=== PATIENT | female | born 1930 | race Caucasian/White ===

== ENCOUNTER → 2018-03-05 09:52 | Outpatient (CLI) | payer OTHER ==
[2013-01-25 13:19] VITALS: BMI 23.4
[~2018-03-05 09:52] MED LIST: ESTRACE1 MG PO; KLOR-CON 1010 MEQ PO; LEXAPRO10 MG PO; LISINOPRIL10 MG PO; LOMOTIL TABLET1 TAB PO; NEURONTIN 300300 MG PO; OMNICEF300 MG PO; PLAVIX75 MG PO; PRAVASTATIN SOD10 MG PO; XANAX0.25 MG PO
== END | disposition home or self-care (01) ==
LOC: D.CT 09:52
DX: F03.90 Unspecified dementia, unspecified severity, without behavioral disturbance, psychotic disturbance, mood disturbance, and anxiety (principal)

== ENCOUNTER 2018-03-18 22:16 | Inpatient (IN) | payer MEDICARE ==
[~2018-03-18] VITALS: Ht 152.4 cm; Wt 49.0 kg
--- NOTE | ~2018-03-18 | CN ---
PATIENT NAME:LOU NUNES MEDICAL RECORD: [id number] : 34 LOCATION:D.[facility]14 ADMIT DATE: 03/19/18 ACCOUNT: [id number] CONSULTING PHYSICIAN: JOE BATISTA MD REFERRING PHYSICIAN: ARINA RAMIREZ MD DATE OF CONSULTATION: 03/20/2018 HISTORY OF PRESENT ILLNESS: An 88-year-old lady with a history of hypertension, hyperlipidemia. Admitted with pancreatitis and underwent ERCP. Actually feeling better at this point, no specific complaints. Was found to have elevated cardiac enzymes perioperatively. We are asked to see her concerning her cardiovascular status. PAST MEDICAL HISTORY: Includes; 1. History of hypertension. 2. Hyperlipidemia. MEDICATIONS: Include Estrace mg Thursday, Thursday, and Thursday. Neurontin 300 four times a day. Lexapro 10 Thursday, Thursday, and . Xanax 0.5 at bedtime p.r.n. Pravastatin 10 at bedtime. Lisinopril 10 every day. Plavix 75 every day. ALLERGIES: HYDROCODONE, BETADINE. SOCIAL HISTORY: . Nonsmoker and nondrinker. Easily takes care of her ADLs. Actually stays quite active. REVIEW OF SYSTEMS: The patient reports easy bruising but reports no swollen glands. The patient reports no fever, no night sweats, no significant weight gain, no significant weight loss. No significant exercise tolerance. The patient reports no dry eyes, no irritation, no vision change. Patient reports no difficulty hearing and no ear pain. Patient reports no frequent nose bleeds or nose and sinus problems. Patient reports on arm pain on exertion. No shortness of breath while lying down. No history of heart murmur. Patient reports no cough, no wheezing or coughing up blood. Patient reports no abdominal pain, no vomiting. Normal appetite. No diarrhea and not vomiting blood. No nausea and no constipation. Patient reports no incontinence. No difficulty urinating. No hematuria. No increased frequency. Patient reports no muscle aches. No weakness, no arthralgias, no back pain. No swelling of the extremities. Patient reports no abnormal mole, no jaundice, no rashes. Reports no loss of consciousness. No weakness and no numbness. No seizures, dizziness, or headaches. The patient reports no depression, no sleep disturbance, feeling safe in a relationship and no alcohol abuse. Patient reports on fatigue. Reports no runny nose or sinus pressure. No itching, no hives, and no frequent sneezing. PHYSICAL EXAMINATION: GENERAL: Pleasant female, in no acute distress. VITAL SIGNS: Blood pressure 137/59, pulse 83 and regular. HEENT: Normocephalic, atraumatic. NECK: No JVD or bruit. HEART: Regular. A II/ systolic ejection murmur. LUNGS: Good air excursion. ABDOMEN: Soft, nontender. EXTREMITIES: Pulses are 2+, with no edema. CONSULT REPORT [id number] LOU NUNES NEUROLOGIC: Grossly intact. IMPRESSION: Suspect elevated cardiac enzymes secondary to demand ischemia, underlying pancreatitis, etc. Appears to be doing better from this standpoint. We will check echo study to assess for any focal wall motion abnormality. Thank you for this consultation. TRANSINT:[id number] Voice Confirmation ID: [id number] DOCUMENT ID: [id number] JOE BATISTA MD at 1132 CC: [id number] DICTATION DATE: 03/20/18 1125 SENIOR TREASURY ANALYST: 03/20/18 1418 DIS IN 03/20/[address] [facility] [address] [place] [address]
[2018-03-18 23:23] LABS: APPEARANCE HAZY (CLEAR); BACTERIA MANY /hpf (NONE SEEN); BILIRUBIN NEGATIVE (NEGATIVE); COLOR YELLOW (YELLOW); EPITHELIAL CELLS NSEEN /hpf (0-5); GLUCOSE NEGATIVE (NEGATIVE); KETONE NEGATIVE (NEGATIVE); NITRITE POSITIVE (NEGATIVE); PROTEIN NEGATIVE (NEGATIVE); RED CELLS - URINE NONE SEEN /hpf (0-5); SPECIFIC GRAVITY 1.015 (1.005-1.020); UROBILINOGEN NORMAL (NORMAL)
[2018-03-18 23:31] LABS: BASOPHILS 0.3 % (0-2); EOSINOPHILS 0.7 % (0-7); HEMATOCRIT 46.7 % (36.0-48.0); HEMOGLOBIN 15.6 g/dL (12-16); IMMATURE GRANULOCYTES 0.1 % (0-5); LYMPHOCYTES 4.4 % (15-50); MCH 34.2 pg (26.0-34.0); MCHC 33.4 g/dL (31.0-37.0); MCV 102.4 fL (80.0-100.0); MEAN PLATELET VOLUME 9.8 fL (7.4-10.4); MONOCYTES 3.3 % (2-11); NEUTROPHILS 91.2 % (40-80); RBC 4.56 10x6/uL (4.00-5.40); RDW 12.6 % (11.5-14.5); WBC 7.5 10x3/uL (4.8-10.8)
[2018-03-18 23:35] LABS: PLATELET COUNT 144 10x3/uL (130-400)
[2018-03-18 23:44] LABS: INR 0.9 (0.85-1.17); PROTIME 11.8 SECONDS (11.6-15.0)
[2018-03-19 00:10] LABS: ALBUMIN 3.7 g/dL (3.4-5.0); ALKALINE PHOSPHATASE 153 U/L (46-116); ALT (SGPT) 607 U/L (10-68); BILIRUBIN - TOTAL 2.86 mg/dL (0.2-1.3); CALC OSMOLALITY 280 mosm/kg (275-300); CARBON DIOXIDE 34.4 mmol/L (21.0-32.0); CHLORIDE - SERUM 98 mmol/L (98-107); CREATININE - SERUM 1.1 mg/dL (0.6-1.3); GLUCOSE 106 mg/dL (74-106); POTASSIUM - SERUM 4.1 mmol/L (3.5-5.1); PROTEIN - SERUM 7.3 g/dL (6.4-8.2); SODIUM 139 mmol/L (136-145); UREA NITROGEN 21 mg/dL (7-18); eGFR NON AFRICAN AMERICAN 50 mL/min (90-120)
[2018-03-19 00:19] LABS: CKMB 2.9 U/L (0.0-3.6); CREATINE KINASE 124 UL (21-215); PRO BNP 613 pg/mL (0-450); TROPONIN-I 0.034 ng/mL (0.000-0.060)
[2018-03-19 04:15] VITALS: BP 117/94; BMI 21.1
[2018-03-19 04:44] VITALS: BP 117/44
[2018-03-19 08:39] VITALS: BP 112/57
[2018-03-19] MEDS ORDERED: PRAVASTATIN SOD10 MG PO (10:04)
[2018-03-19] MEDS ORDERED: PLAVIX75 MG PO (10:04)
[2018-03-19] MEDS ORDERED: LISINOPRIL10 MG PO (10:04)
[2018-03-19] MEDS ORDERED: NEURONTIN 300300 MG PO (10:05)
[2018-03-19] MEDS ORDERED: LEXAPRO10 MG PO (10:06)
[2018-03-19] MEDS ORDERED: XANAX0.25 MG PO (10:06)
[2018-03-19] MEDS ORDERED: ESTRACE1 MG PO (10:07)
[2018-03-19] MEDS ORDERED: LOMOTIL TABLET1 TAB PO (10:08)
[2018-03-19] MEDS ORDERED: KLOR-CON 1010 MEQ PO (10:09)
[2018-03-19 13:03] VITALS: Ht 152.4 cm; Wt 49.0 kg
[2018-03-19 13:09] VITALS: BP 115/52
[2018-03-19 15:09] LABS: CKMB 1.1 U/L (0.0-3.6); CREATINE KINASE 58 UL (21-215)
[2018-03-19 18:21] VITALS: BP 162/62
[2018-03-19 19:53] VITALS: BP 156/73
[2018-03-19 21:10] LABS: CKMB 2.1 U/L (0.0-3.6); CREATINE KINASE 119 UL (21-215)
[2018-03-19 21:16] LABS: TROPONIN-I 0.095 ng/mL (0.000-0.060)
[2018-03-20] VITALS: BP 125/52; BP 137/59
[2018-03-20 04:00] VITALS: BP 137/59
[2018-03-20 06:37] LABS: BASOPHILS 0.4 % (0-2); EOSINOPHILS 1.5 % (0-7); HEMATOCRIT 38.3 % (36.0-48.0); IMMATURE GRANULOCYTES 0.3 % (0-5); LYMPHOCYTES 13.1 % (15-50); MCHC 31.3 g/dL (31.0-37.0); MEAN PLATELET VOLUME 9.8 fL (7.4-10.4); NEUTROPHILS 75.7 % (40-80); PLATELET COUNT 140 10x3/uL (130-400); RDW 13.7 % (11.5-14.5); WBC 7.2 10x3/uL (4.8-10.8)
[2018-03-20 06:39] LABS: MCV 105.2 fL (80.0-100.0); RBC 3.64 10x6/uL (4.00-5.40)
[2018-03-20 07:12] LABS: ALKALINE PHOSPHATASE 100 U/L (46-116); AMYLASE - SERUM 169 U/L (25-115); CALCIUM 7.8 mg/dL (8.5-10.1); CHLORIDE - SERUM 108 mmol/L (98-107); CREATINE KINASE 153 UL (21-215); CREATININE - SERUM 0.9 mg/dL (0.6-1.3); GLUCOSE 85 mg/dL (74-106); LIPASE 249 U/L (73-393); POTASSIUM - SERUM 3.8 mmol/L (3.5-5.1); SODIUM 142 mmol/L (136-145); eGFR NON AFRICAN AMERICAN 63 mL/min (90-120)
[2018-03-20 07:13] LABS: ALBUMIN 2.7 g/dL (3.4-5.0); ALT (SGPT) 258 U/L (10-68); CALC OSMOLALITY 281 mosm/kg (275-300); CARBON DIOXIDE 25.1 mmol/L (21.0-32.0); TROPONIN-I 0.285 ng/mL (0.000-0.060); UREA NITROGEN 12 mg/dL (7-18)
[2018-03-20] MEDS ORDERED: OMNICEF300 MG PO (13:16)
== END 2018-03-20 14:15 | disposition home or self-care (01) | DRG 439 ==
LOC: D.ER 22:16 → D.EDHOLD 03-19 01:40 → D.MS 03-19 01:40
PROVIDERS: Emergency Medicine; Family Medicine; Internal Medicine Gastroenterology; Nurse Practitioner Family
PROC: 0F798ZZ Dilation of Common Bile Duct, Via Natural or Artificial Opening Endoscopic (ICD-10-PCS; principal; 2018-03-19 15:42)
DX: K85.90 Acute pancreatitis without necrosis or infection, unspecified (principal); N39.0 Urinary tract infection, site not specified; E86.0 Dehydration; E78.5 Hyperlipidemia, unspecified; E80.6 Other disorders of bilirubin metabolism

== ENCOUNTER 2018-04-17 15:12 | Emergency (ER) | payer MEDICARE ==
[2018-03-19 13:03] VITALS: BMI 21.0
[2018-04-17 15:44] LABS: BASOPHILS 1.1 % (0-2); EOSINOPHILS 3.2 % (0-7); HEMATOCRIT 44.1 % (36.0-48.0); HEMOGLOBIN 14.1 g/dL (12-16); LYMPHOCYTES 39.8 % (15-50); MCH 33.2 pg (26.0-34.0); MCV 103.8 fL (80.0-100.0); MEAN PLATELET VOLUME 9.6 fL (7.4-10.4); MONOCYTES 12.7 % (2-11); NEUTROPHILS 43.2 % (40-80); PLATELET COUNT 140 10x3/uL (130-400); RBC 4.25 10x6/uL (4.00-5.40); RDW 13.2 % (11.5-14.5); WBC 5.6 10x3/uL (4.8-10.8)
[2018-04-17 15:58] LABS: ALBUMIN 3.4 g/dL (3.4-5.0); ALKALINE PHOSPHATASE 72 U/L (46-116); ALT (SGPT) 24 U/L (10-68); CALC OSMOLALITY 277 mosm/kg (275-300); CALCIUM 9.1 mg/dL (8.5-10.1); CARBON DIOXIDE 30.6 mmol/L (21.0-32.0); CHLORIDE - SERUM 102 mmol/L (98-107); CREATININE - SERUM 1.2 mg/dL (0.6-1.3); POTASSIUM - SERUM 4.8 mmol/L (3.5-5.1); PROTEIN - SERUM 6.9 g/dL (6.4-8.2); SODIUM 139 mmol/L (136-145); UREA NITROGEN 19 mg/dL (7-18); eGFR NON AFRICAN AMERICAN 45 mL/min (90-120)
[2018-04-17 16:06] LABS: GLUCOSE 69 mg/dL (74-106)
[2018-04-17 16:23] LABS: CREATINE KINASE 47 UL (21-215)
[2018-04-17 16:26] LABS: TROPONIN-I < 0.017 ng/mL (0.000-0.060)
[2018-04-17 16:57] LABS: AMYLASE - SERUM 74 U/L (25-115); LIPASE 209 U/L (73-393)
[2018-04-17 18:16] LABS: APPEARANCE CLEAR (CLEAR); BILIRUBIN NEGATIVE (NEGATIVE); COLOR YELLOW (YELLOW); GLUCOSE NEGATIVE (NEGATIVE); KETONE NEGATIVE (NEGATIVE); NITRITE NEGATIVE (NEGATIVE); PROTEIN NEGATIVE (NEGATIVE); UROBILINOGEN NORMAL (NORMAL)
== END 2018-04-17 18:51 | disposition home or self-care (01) ==
LOC: D.ER 15:12
PROVIDERS: Emergency Medicine; Nurse Practitioner Family
DX: E16.2 Hypoglycemia, unspecified (principal); R53.1 Weakness; I25.10 Atherosclerotic heart disease of native coronary artery without angina pectoris; F03.90 Unspecified dementia, unspecified severity, without behavioral disturbance, psychotic disturbance, mood disturbance, and anxiety; I10 Essential (primary) hypertension; Z86.73 Personal history of transient ischemic attack (TIA), and cerebral infarction without residual deficits

== ENCOUNTER 2019-04-28 04:58 | Emergency (ER) | payer MEDICARE ==
[~2019-04-28] VITALS: Ht 152.4 cm; Wt 51.8 kg
[2019-04-28 04:59] VITALS: Ht 152.4 cm; Wt 51.8 kg
[2019-04-28] MEDS ORDERED: ISOSORBIDE MONO30 M1 PO (05:03)
[2019-04-28 06:16] VITALS: BP 182/83
== END 2019-04-28 06:16 | disposition home or self-care (01) ==
LOC: D.ER 04:58
DX: S01.01XA Laceration without foreign body of scalp, initial encounter (principal); W06.XXXA Fall from bed, initial encounter; Y93.89 Activity, other specified; Y92.013 Bedroom of single-family (private) house as the place of occurrence of the external cause

== ENCOUNTER 2019-09-02 14:34 | Emergency (ER) | payer MEDICARE ==
[~2019-09-02] VITALS: Ht 152.4 cm; Wt 54.5 kg
[~2019-09-02 14:34] MED LIST changes: +ISOSORBIDE MONO30 M1 PO
[2019-09-02 14:36] VITALS: Ht 152.4 cm; Wt 54.5 kg
[2019-09-02 15:10] LABS: BASOPHILS 0.6 % (0-2); EOSINOPHILS 1.1 % (0-7); HEMATOCRIT 48.8 % (36.0-48.0); HEMOGLOBIN 15.7 g/dL (12-16); IMMATURE GRANULOCYTES 0.2 % (0-5); LYMPHOCYTES 22.3 % (15-50); MCH 32.7 pg (26.0-34.0); MCHC 32.2 g/dL (31.0-37.0); MCV 101.7 fL (80.0-100.0); MEAN PLATELET VOLUME 9.6 fL (7.4-10.4); MONOCYTES 13.3 % (2-11); NEUTROPHILS 62.5 % (40-80); RDW 12.6 % (11.5-14.5); WBC 6.4 10x3/uL (4.8-10.8)
[2019-09-02 15:18] LABS: PLATELET COUNT 179 10x3/uL (130-400)
[2019-09-02 15:24] LABS: ALBUMIN 3.5 g/dL (3.4-5.0); ANION GAP 9.6 mmol/L (8-16); BILIRUBIN - TOTAL 0.25 mg/dL (0.2-1.3); CARBON DIOXIDE 33.4 mmol/L (21.0-32.0); PROTEIN - SERUM 6.7 g/dL (6.4-8.2)
[2019-09-02 21:20] VITALS: BP 128/54
== END 2019-09-02 21:25 | disposition other institution (70) ==
LOC: D.ER 14:34
PROVIDERS: Family Medicine
DX: K92.2 Gastrointestinal hemorrhage, unspecified (principal)

== ENCOUNTER 2020-01-24 18:43 | Inpatient (IN) | payer MEDICARE ==
[~2020-01-24] VITALS: Ht 152.4 cm; Wt 51.5 kg
[2020-01-24] MEDS ORDERED: BAYER CHEWABLE81 MG PO (18:48)
--- NOTE | 2020-01-24 19:15 | NUR ---
PT AMBULATED TO RESTROOM WITH ASSIST. PT UNABLE TO PRODUCE SAMPLE AT THIST SHIVA. EDP ZOE NOTIFIED. PT PROVIDED WITH WATER AT REQUEST.
[2020-01-24 20:07] LABS: BASOPHILS 0.6 % (0-2); EOSINOPHILS 1.8 % (0-7); HEMATOCRIT 47.1 % (36.0-48.0); HEMOGLOBIN 14.8 g/dL (12-16); IMMATURE GRANULOCYTES 0.1 % (0-5); LYMPHOCYTES 13.6 % (15-50); MCH 28.7 pg (26.0-34.0); MCHC 31.4 g/dL (31.0-37.0); MCV 91.3 fL (80.0-100.0); MEAN PLATELET VOLUME 9.3 fL (7.4-10.4); MONOCYTES 13.8 % (2-11); NEUTROPHILS 70.1 % (40-80); RBC 5.16 10x6/uL (4.00-5.40); RDW 15.7 % (11.5-14.5); WBC 8.2 10x3/uL (4.8-10.8)
--- NOTE | 2020-01-24 20:17 | NUR ---
URINE SENT TO LAB.
[2020-01-24 20:24] LABS: ANION GAP 9.6 mmol/L (8-16); CALCIUM 9.4 mg/dL (8.5-10.1); CARBON DIOXIDE 31.3 mmol/L (21.0-32.0); CREATININE - SERUM 1.2 mg/dL (0.6-1.3); POTASSIUM - SERUM 4.9 mmol/L (3.5-5.1)
[2020-01-24 20:30] LABS: ALBUMIN 3.4 g/dL (3.4-5.0); BILIRUBIN - TOTAL 0.29 mg/dL (0.2-1.3); PROTEIN - SERUM 7.3 g/dL (6.4-8.2); THYROID STIMULATING HORMONE 2.83 uIU/mL (0.36-3.74)
[2020-01-24 20:34] LABS: PLATELET COUNT 258 10x3/uL (130-400)
[2020-01-24 20:38] LABS: GLUCOSE NEGATIVE (NEGATIVE); KETONE NEGATIVE (NEGATIVE); NITRITE NEGATIVE (NEGATIVE); SPECIFIC GRAVITY 1.015 (1.005-1.020); UROBILINOGEN NORMAL (NORMAL)
[2020-01-24 20:39] LABS: BILIRUBIN NEGATIVE (NEGATIVE)
[2020-01-24 20:43] LABS: UDS - AMPHET NEGATIVE QUAL (NEGATIVE); UDS - BARB NEGATIVE QUAL (NEGATIVE); UDS - BENZO NEGATIVE QUAL (NEGATIVE); UDS - COCAINE NEGATIVE QUAL (NEGATIVE); UDS - OPIATE NEGATIVE QUAL (NEGATIVE); UDS - PCP NEGATIVE QUAL (NEGATIVE); UDS - THC NEGATIVE QUAL (NEGATIVE)
--- NOTE | 2020-01-24 20:43 | NUR ---
PT IN CHAIR EXT TO SPOUSE. PT DENIES ANY COMPLAINTS AT THIS TIME. WILL CONTINUE TO MONITOR.
--- NOTE | 2020-01-24 21:20 | NUR ---
INFO FAXED TO [facility] IN HALFWAY FOR EVALUATION.
[2020-01-24 23:07] VITALS: BP 182/91
--- NOTE | 2020-01-24 23:30 | NUR ---
NEW ADMIT TO DR DEAL FROM [facility], RELATED TO ALTERED MENTAL STATUS. RECEIVED VIA WHEELCHAIR WITH ED STAFF AND SPOUSE BY HER SIDE. NOTED ANXIETY UPON ARRIVAL. RICHAR NUNES SIGNED ADMIT CONSENTS AND TOOK ALL PATIENT VALUABLES HOME. PATIENT IS VERY CONFUSED. ORIENTED TO SELF ONLY. RESISTANT TO CARE AT TIMES. POEY ALARM ON BED BUT ATTEMPTS TO EXIT WITHOUT ASSIST WITH ALARM SOUNDING. CONTINUE TO MONITOR FOR SAFETY.
[2020-01-24 23:50] VITALS: BP 182/91; BMI 21.6
--- NOTE | 2020-01-25 00:37 | NUR ---
PATIENT HAS INCREASING ANXIETY AND AGITATION. UNABLE TO REDIRECT AND REORIENT. PRN ATIVAN 0.5 MG IM GIVEN FOR ANXIETY. CONTINUE TO MONITOR FOR SAFETY.
--- NOTE | 2020-01-25 02:00 | NUR ---
AWAKE IN ROOM. CALMLY TALKING WITH MHT. FREQUENT URINATION. ASSIT TO BATHROOM.
--- NOTE | 2020-01-25 04:11 | NUR ---
CONTINUES TO BE UP AND DOWN FROM BED TO BATHROOM. SIMEON ALARM SOUNDING. CONFUSED.
[2020-01-25 08:36] LABS: CHOL - HDL RATIO 2.1 ratio (2.3-4.1); CHOLESTEROL, TOTAL 163 mg/dL (0-200); HDL CHOLESTEROL 76 mg/dL (32-96); LDL CHOLESTEROL 75 mg/dL (0-100); TRIGLYCERIDE 61 mg/dL (30-200)
[2020-01-25 09:00] VITALS: BP 143/71
[2020-01-25 15:13] VITALS: Ht 152.4 cm; Wt 51.5 kg
--- NOTE | 2020-01-25 16:18 | NUR ---
ALERT, RESTLESS, PACING, EXIT-SEEKING, LOOKING FOR . NO AGGRESSION NOTED. MEDS ADMIN PER ORDERS WITH COMPLETE MED COMPLIANCE NOTED.
--- NOTE | 2020-01-25 20:59 | NUR ---
PATIENT IS VERY CONFUSED, EXIT SEEKING, ANXIOUS TO THE POINT OF BEING "BREATHY". WRINGING HER HANDS. ATIVAN IM GIVEN FOR ANXIETY. WILL MONITOR
[2020-01-25 22:02] VITALS: BP 103/50
[2020-01-26 07:13] LABS: RAPID PLASMA REAGIN Non Reactive (Non Reactive)
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
--- NOTE | 2020-01-26 10:27 | NUR ---
The patient did not want to get out of bed this am. She said "I don't want to get up." Staff assisted her to dress, but she fought a little with getting her shirt on. She was assisted to a w/c by 2 staff and taken to the dining room where she ate breakfast. After she ate she was assisted to a recliner as she is sleepy this am. Provide prescribed meds, redirect as needed. The patient is compliant with meds. Continue POC.
[2020-01-26 10:29] VITALS: BP 138/60
--- NOTE | 2020-01-26 10:54 | NUR ---
Nutrition Follow-up: Diet: Regular PO intake: 50-90% x 3 meals since admit Last BM: none since admit. WT: 110# (01/24/20)- wheelchair Meds and labs reviewed. Recommend continue current diet. Encourage PO intake. RD following.
--- NOTE | 2020-01-26 11:30 | NUR ---
ASSISTED PT TO LAY ON COUCH. PRIOR TO NURSE REPOSITION IN RECLINER CHAIR 3X DUE TO BEING UNCOMFORTABLE. PT DID TAKE A SHORT NAP ON THE COUCH. REPORTED TO DR. DEAL. MEDICATION DECREASED.
[2020-01-26 19:30] VITALS: BP 106/52
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
[2020-01-27 09:00] VITALS: BP 142/80
--- NOTE | 2020-01-27 10:13 | NUR ---
The patient is awake and alert, she got up out of bed herself and she asked what she is supposed to do now. Staff explained to her that she is in the hospital and they explained all the things that will take place this morning. She said ok, currently she is speaking with Mary Do AT, but she told Mary she lives with her Mother and she is not , but actually she is and lives with him. Provide prescribed meds. The patient is compliant with meds. Continue POC.
--- NOTE | 2020-01-27 13:38 | NUR ---
SW CALLED PT'S , RICHAR, TO GIVE UPDATE ON PT. SW DISCUSSED DISHCHARGE PLANNING NEEDS AND LEVEL OF CARE PT NEEDS DUE TO HER DISEASE PROGRESSION. RICHAR WANTS REFERRALS SENT TO [facility], [facility], AND [facility]. DES VOICED UNDERSTANDING OF DISCUSSION.
--- NOTE | 2020-01-27 13:40 | PN ---
PATIENT:LOU NUNES MEDICAL RECORD: [id number] LOCATION:[facility] ADMISSION DATE: 01/24/20 PROGRESS NOTE DATE OF SERVICE: 01/26/2020 SUBJECTIVE: The patient's case was discussed with staff and she has no new complaint. OBJECTIVE: The patient is a little sedated. She has poor insight about her situation. She did receive p.r.n. medication last night for agitation. ASSESSMENT: Dementia. PLAN: I am going to stop the patient's Seroquel. She will be monitored for clinical changes. TRANSINT:[id number] Voice Confirmation ID: [id number] DOCUMENT ID: [id number] MARSHAL DEAL MD at 1340 CC: [id number] DICTATION DATE: 01/26/20 1016 EMERGENCY ROOM DOCTOR: 01/26/20 1522 ADM IN [place] [id number] [place] [address]
[2020-01-27 20:00] VITALS: BP 131/71
--- NOTE | 2020-01-28 00:36 | NUR ---
B.) PT IS ALERT AND ORIENTED TO SELF ONLY. SHE IS INTRUSIVE WITH PEERS. SHE IS ABLE TO AMBULATE AND MAKE HER NEEDS KNOWN. SHE IS ANXIOUS, WANDERING AND RESTLESS. SHE STATES "IM READY TO GO TO MY SISTERS." I.) PROVIDED PM MEDICATIONS. REDIRECT OFTEN. R.) COMPLIANT WITH ALL MEDICATIONS. DIFFICULT TO REDIRECT. P.) WILL CONTINUE TO MONITOR.
[2020-01-28 08:09] VITALS: BP 151/74
--- NOTE | 2020-01-28 13:05 | NUR ---
The patient is awake and alert, but she is confused and she is getting anxious, she did not sleep well last night. She has poor insight into her situation. She keeps saying "I need to get up there and take care of things." She is exit seeking and has tried all of the doors. Provide prescribed meds. The patient is compliant with meds. Continue POC.
--- NOTE | 2020-01-28 19:25 | NUR ---
B.) PT IS ALERT AND ORIENTED TO SELF ONLY. SHE IS INTRUSIVE WITH STAFF AND PEERS. SHE IS AGGITATED AND AGGRESSIVE WITH STAFF. SHE IS UNCOOPERATIVE AND REFUSES TO GET OUT OF OTHER PATIENTS FACES. I.) PROVIDED PRN 0.5 MG ATIVAN PO WITH PRESCRIBED PM MEDICATIONS. REDIRECT OFTEN. R.) COMPLIANT WITH ALL MEDICATIONS. DIFFICULT TO REDIRECT. P.) WILL CONTINUE TO MONITOR.
--- NOTE | 2020-01-28 20:01 | NUR ---
PT FINALLY IN HER ROOM. GOING PILFERING THROUGH HER ITEMS IN HER ROOM. STILL UNABLE TO REDIRECT WILL CONTINUE TO MONITOR
[2020-01-28 21:17] VITALS: BP 151/74
--- NOTE | 2020-01-28 21:20 | NUR ---
PT RESTING CALMLY IN BED WITH EYES CLOSED. NO SIGNS OF DISTRESS NOTED. WILL CONTINUE TO MONITOR
[2020-01-28 21:34] VITALS: BP 127/59
[2020-01-29 09:07] VITALS: BP 122/57
--- NOTE | 2020-01-29 10:00 | NUR ---
OBSERVED IN DOORWAY HOLDING ON TO WALL AND LOOKING VERY UNSTEADY.ASSISTED TO CHAIR.STATES"I VOMITED 2 TIMES".COLD DAMP CLOTH APPLIED TO FORHEAD FOR COMFORT.BP129/61,P94,T98.4.DENIES NAUSEA NOW.IS CONFUSED AND DISORIENTED.COMPLIANT WITH MEDS AND STAFF.POOR INSITE TO WHY SHE IS HERE.WILL CONTINUE WITH CURRENT PLAN OF CARE,MONITOR FOR CHANGES AND SAFETY.
--- NOTE | 2020-01-29 11:01 | NUR ---
DENIES NAUSEA OR OTHER DISTRESS.
--- NOTE | 2020-01-29 12:23 | NUR ---
ATIVAN 0.5MG PO GIVEN FOR ANXIETY.VERY CONFUSED AND EXIT SEEKING.WILL NOT REDIRECT.STANDING IN HALLWAY,REFUSES TO GO TO DINING TABLE FOR LUNCH.WILL CONTINUE TO MONITOR FOR CHANGES AND SAFETY.
[2020-01-29 20:00] VITALS: BP 95/59
--- NOTE | 2020-01-29 20:37 | NUR ---
PT IS AGGRESSIVE AND INTRUSIVE WITH PEERS. SHE REFUSES HER PM MEDICATIONS AND THREW THEM AT STAFF AND PEERS. ATTEMPTED TO REDIRECT. DIFFICULT TO REDIRECT. ADMINISTERED HALDOL 2MG AND 0.5 MG ATIVAN IM PRN. WILL CONTINUE TO MONITOR.
--- NOTE | 2020-01-29 21:15 | NUR ---
PT IS RESTING CALMLY IN BED WITH EYES OPEN. SHE IS EASY TO REDIRECT. WILL CONTINUE TO MONITOR.
[2020-01-30 00:07] VITALS: BP 95/59
[2020-01-30 08:36] VITALS: BP 188/80
--- NOTE | 2020-01-30 08:45 | NUR ---
RECEIVED IN HALLWAY OUTSIDE OF NURSES STATION. CALM AND COOPERATIVE WITH CARE AND ASSESSMENT. HAVING VISUAL HALLUCINATIONS. NO AGGRESSIVE BEHAVIORS THIS MORNING. REDIRECT AND REORIENT NEEDED. EATING BREAKFAST AT THIS TIME. CONTINUE PLAN OF CARE.
--- NOTE | 2020-01-30 13:55 | PN ---
PATIENT:LOU NUNES MEDICAL RECORD: [id number] LOCATION:KATIE [facility] ADMISSION DATE: 01/24/20 PROGRESS NOTE DATE OF SERVICE: 01/29/2020 SUBJECTIVE: The patient's case was discussed with staff. The patient has no new complaints. The patient was medicated for anxiety. The patient's spouse did visit her. She was sitting quietly in a chair, talking with another client. OBJECTIVE: The patient did sleep 5 hours last night. She is eating better. She is compliant with her medications. She was stated to have been tearful this morning, but has calmed down later this afternoon after her spouse visited her. The patient's general appearance is slightly disheveled. She is alert to person. Her voice is soft and low tone and low volume. Her associations are loose. Her eye contact is good. Her insight is impaired and her thought is distracted. Her mood is anxious and depressed with a flat narrow in range affect. Her anxiety is moderate. Her memory is poor for both recent and remote events. The patient does not appear to be attending to either visual or auditory hallucinations. She has poor judgment and insight. ASSESSMENT: No change in diagnosis. PLAN: We will continue to monitor the patient for clinical signs of change. We will continue to work with mood and behavior stabilization and labile emotions and to keep the patient safe. Dictated By: Magda Jordan APN I have interviewed/examined the above patient and agree with these documented findings. TRANSINT:[id number] Voice Confirmation ID: [id number] DOCUMENT ID: [id number] MARSHAL DEAL MD at 1355 CC: [id number] DICTATION DATE: 01/29/20 1859 REGISTERED RADIOGRAPHER: 01/30/20 0659 ADM IN [facility] [address] [place] [address]
--- NOTE | 2020-01-30 13:55 | PN ---
PATIENT:LOU NUNES MEDICAL RECORD: [id number] LOCATION:[facility] ADMISSION DATE: 01/24/20 PROGRESS NOTE DATE OF SERVICE: 01/28/2020 SUBJECTIVE: The patient's case was discussed with staff. The patient has no new complaints. OBJECTIVE: The patient did not sleep well last night. She did eat fairly well. She is compliant with her medications. She is disoriented to place, time, and situation and oriented to herself. The patient's speech is soft, low tone, and low volume. Her associations are loose. Her eye contact is fair. Her judgment is impaired and her thought of concentration is distracted or circumstantial thoughts. Her mood is depressed and anxious, easily agitated. Her affect is flat. Judgment and insight are poor. ASSESSMENT: No change in diagnosis. PLAN: We will continue to monitor the patient for clinical signs of change. Continue to work with mood and behavioral stabilization and psychosis. Dictated By: Magda Jordan APN I have interviewed/examined the above patient and agree with these documented findings. TRANSINT:[id number] Voice Confirmation ID: [id number] DOCUMENT ID: [id number] MARSHAL DEAL MD at 1355 CC: [id number] DICTATION DATE: 01/28/20 1556 HORN PLAYER: 01/29/20 0307 ADM IN [place] [id number]
--- NOTE | 2020-01-30 14:50 | NUR ---
ANXIOUS,PACING AND EXIT SEEKING.ATIVAN 0.5MG PO GIVEN.
--- NOTE | 2020-01-30 15:15 | NUR ---
GOOD RESPONSE TO ATIVAN PO.SITTING AT TABLE,VISITS WITH PEER.RESP REG AND EVEN.
--- NOTE | 2020-01-30 16:22 | PN ---
PATIENT:LOU NUNES MEDICAL RECORD: [id number] LOCATION:[facility] ADMISSION DATE: 01/24/20 PROGRESS NOTE DATE OF SERVICE: 01/27/[address] Rivers SUBJECTIVE: The patient's case was discussed with staff and she has no new complaints. OBJECTIVE: The patient is more awake today. She ate 100% of lunch and dinner, 75% of breakfast. She slept 10 hours last night. She still appears to be confused and anxious and is pacing at times. The patient did not receive any p.r.n. medications this last 24 hours. The patient does not appear to have any hallucinations. ASSESSMENT: Dementia. PLAN: I am going to continue monitoring the patient for clinical signs of change, also the family is seeking long-term care placement. We will continue to monitor her for hallucinations or aggression. Dictated By: Magda Jordan APN I have interviewed/examined the above patient and agree with these documented findings. TRANSINT:[id number] Voice Confirmation ID: [id number] DOCUMENT ID: [id number] MARSHAL RIVERS MD at 1622 CC: [id number] DICTATION DATE: 01/27/20 1750 SHEETER MACHINE OPERATOR: 01/27/20 2252 ADM IN [place] [id number] [place] [address]
[2020-01-30 20:08] VITALS: BP 124/76
--- NOTE | 2020-01-31 00:55 | NUR ---
B)RECEIVED PATIENT WALKING ON THE UNIT. CONFUSED AND DISORIENTED. ASK STAFF "WHERE IS MY ?" DIFFICULTY FOLLOWING CONVERSATION AND VERBAL DIRECTIONS DUE TO IMPAIRED ABILITY TO PROCESS INFORMATION. CAN TAKE PATIENT TO HER ROOM AND ONCE IN HER ROOM PATIENT WILL WALK AROUND IF SHE IS LOST AND DOES NOT KNOW WHAT TO DO NEXT. I)ADMINISTER MEDS AND MONITOR COMPLIANCE. REORIENT NEEDED. R)MED COMPLIANT. POOR REORIENTATION DUE TO IMPAIRED ABILITY TO PROCESS, COMPREHEND AND RETAIN INFORMATION. PLEASANTHOWEVER VERY CONFUSED. P)CONTINUE POC AND PROVIDE SAFE ENVIRONMENT.
--- NOTE | 2020-01-31 09:20 | NUR ---
RECEIEVED IN HALLWAY OUTSIDE OF NURSES STATION. CALM AND COOPERATIVE WITH CARE AND ASSESSMENT. NO SIGNS OF HALLUCINATIONS. NO AGGRESSIVE BEHAVIORS. REDIRECT AND REORIENT NEEDED. EATING BREAKFAST AT THIS TIME. CONTINUE PLAN OF CARE.
[2020-01-31 10:52] VITALS: BP 161/74
--- NOTE | 2020-01-31 11:47 | PN ---
PATIENT:LOU NUNES MEDICAL RECORD: [id number] LOCATION:KATIE Kaufman112 ADMISSION DATE: 01/24/20 PROGRESS NOTE DATE OF SERVICE: 01/30/2020 SUBJECTIVE: The patient's case was discussed with staff. She has no new complaint. OBJECTIVE: The patient is in good behavioral control. She has pretty limited insight about her situation. Upon admission, she was started on some medicines for agitations, Seroquel, specifically she was significantly sedated by that. It was stopped and she is no longer sedated. Unfortunately, over the weekend, she has required multiple p.r.n. because of her agitated behavior. She also is quite disruptive and exit seeking. She cannot be redirected from this. ASSESSMENT: Dementia. PLAN: The patient will be started on a low dose of Geodon to assist with her disruptive behaviors. She will be monitored for clinical changes associated with its use. TRANSINT:[id number] Voice Confirmation ID: [id number] DOCUMENT ID: [id number] MARSHAL DEAL MD at 1147 CC: [id number] DICTATION DATE: 01/30/20 1642 PIERCER OPERATOR: 01/31/20 0035 ADM IN [facility] [address] [place] [address]
--- NOTE | 2020-01-31 21:51 | NUR ---
B.) PT IS ALERT AND ORIENTED TO SELF ONLY. SHE HAS POOR INSIGHT INTO HER SITUATION. SHE IS OBSERVED WANDERING THE [place] AGGITATED WITH PEERS. I.) PROVIDED PM MEDICATIONS PRESCRIBED. REDIRECT OFTEN. R.) NON COMPLIANT WITH HER MEDICATIONS. DIFFICULT TO REDIRECT. P.) WILL CONTINUE TO MONITOR.
[2020-01-31 22:36] VITALS: BP 189/94
[2020-02-01 10:33] VITALS: BP 158/82
--- NOTE | 2020-02-01 12:33 | NUR ---
RECEIVED IN HALLWAY OUTSIDE OF NURSES STATION. CALM AND COOPERATIVE WITH CARE AND ASSESSMENT. NO SIGNS OF HALLUCINATIONS. NO BEHAVIORS. REDIRECT AND REORIENT NEEDED. EATING LUNCH AT THIS TIME. CONTINUE PLAN OF CARE.
--- NOTE | 2020-02-01 15:31 | PN ---
PATIENT:LOU NUNES MEDICAL RECORD: [id number] LOCATION:KATIE Kaufman112 ADMISSION DATE: 01/24/20 PROGRESS NOTE DATE OF SERVICE: 01/31/2020 SUBJECTIVE: The patient's case was discussed with staff. She has no new complaint. OBJECTIVE: The patient is calmer today. She is much more redirectable. She slept a little better last night ASSESSMENT: Dementia. PLAN: Current medicines have been reviewed and will be maintained. Long-term prognosis is guarded. Supportive and educational interventions were made. TRANSINT:[id number] Voice Confirmation ID: [id number] DOCUMENT ID: [id number] MARSHAL DEAL MD at 1531 CC: [id number] DICTATION DATE: 01/31/20 1417 FORCE ADJUSTMENT SUPERVISOR: 02/01/20 0409 ADM IN [place] [id number] [place] [address]
[2020-02-01 21:00] VITALS: BP 105/75
--- NOTE | 2020-02-01 22:01 | NUR ---
B.) PT IS ALERT AND ORIENTED TO SELF ONLY. SHE HAS POOR INSIGHT INTO HER SITUATION. SHE IS ABLE TO AMBULATE ON HER OWN AND MAKE HER NEEDS KNOWN. SHE IS HELPFUL WITH HER PEERS BUT IS AFRAID HER HAS LEFT HER AND TAKEN THE TV. I.) PROVIDED PM MEDICATIONS. REDIRECT OFTEN. RECORDED HER EKG. R.) COMPLIANT WITH ALL MEDICATIONS. EASY TO REDIRECT. COMPLIANT WITH HER EKG. P.) WILL CONTINUE TO MONITOR.
--- NOTE | 2020-02-02 08:45 | NUR ---
RECEIVED IN HALLWAY OUTSIDE OF NURSES STATION. CALM AND COOPERATIVE WITH CARE AND ASSESSMENT. VERY CONFUSED. WANDERING AROUND. EXIT SEEKING. REDIRECT AND REORIENT NEEDED. EATING BREAKFAST AT THIS TIME. CONTINUE PLAN OF CARE.
--- NOTE | 2020-02-02 10:39 | NUR ---
Nutrition Follow-up: Diet: Regular PO intake: ~55% average x last 9 meals Last BM: . WT: 110# (01/29/20); Admit WT: 110.4# (01/24/20) Meds noted: natalie (started 01/30/20). No new labs. Recommend continue current diet. Will add Ensure with meals. RD following.
--- NOTE | 2020-02-02 16:47 | PN ---
PATIENT:LOU NUNES MEDICAL RECORD: [id number] LOCATION:KAT[facility]aufman112 ADMISSION DATE: 01/24/20 PROGRESS NOTE DATE OF SERVICE: 02/01/2020 SUBJECTIVE: The patient's case was discussed with staff. She has no new complaint. OBJECTIVE: This patient slept reasonably well last night. She is much calmer and much less disruptive and agitated. ASSESSMENT: Dementia. PLAN: The patient actually recognized her when he came to visit yesterday afternoon that was the thrilling for him and it is clear evidence that she has shown some improvement here. Her long-term prognosis is guarded. TRANSINT:[id number] Voice Confirmation ID: [id number] DOCUMENT ID: [id number] MARSHAL DEAL MD at 1647 CC: [id number] DICTATION DATE: 02/01/20 1542 RUBBER GOODS CUTTER FINISHER: 02/01/20 2112 ADM IN [place] [id number] [place] [address]
[2020-02-02 18:22] VITALS: BP 124/57
[2020-02-02 20:00] VITALS: BP 137/67
--- NOTE | 2020-02-02 20:50 | NUR ---
B.) PT IS ALERT AND ORIENTED TO SELF ONLY. SHE IS RECEIVED IN THE DAYROOM SITTING ON THE COUCH SOCIALIZING WITH HER PEERS. SHE IS PLEASANT AND COOPERATIVE WITH STAFF. SHE IS ABLE TO MAKE HER NEEDS KNOWN. I.) PROVIDED PM MEDICATIONS. REDIRECT OFTEN. R.) COMPLIANT WITH ALL MEDICATIONS. EASY TO REDIRECT. P.) WILL CONTINUE TO MONITOR.
--- NOTE | 2020-02-03 09:20 | NUR ---
PATIENT SITTING AND AWAITING BREAKFAST. NO ACUTE DISTRESS NOTED. PT WANDERS AT TIMES. CONFUSION NOTED ORIENTED TO SELF ONLY. REDIRECT AND REORIENT NEEDED. COMPLIANT WITH MEDS, VITALS, AND ASSESSMENTS. NO BEHAVIORS NOTED AT THIS TIME. WILL CONT PLAN OF CARE.
[2020-02-03 10:32] VITALS: BP 130/55
[2020-02-03 13:10] LABS: T3 - FREE 3.1 pg/mL (2.0-4.4)
[2020-02-03 20:00] VITALS: BP 140/66
--- NOTE | 2020-02-03 21:35 | NUR ---
B)RECEIVED PATIENT AMBULATING ON UNIT. CONFUSED AND DISORIENTED. UNABLE TO FOLLOW TOPIC OF CONVERSATION AND DIFFICULTY WITH FOLLOWING VERBAL INSTRUCTION. I)ADMINISTER MEDS AND MONITOR COMPLIANCE. REORIENT NEEDED. R)MED COMPLIANT. POOR REORIENTATION DUE TO IMPAIRED ABILITY TO COMPREHEND, PROCESS AND RETAIN INFORMATION. P)CONTINUE POC AND PROVIDE SAFE ENVIRONMENT.
--- NOTE | 2020-02-04 02:14 | NUR ---
PT CONTINUES TO BE DISRUPTIVE. CLIMBING OUT OF CHAIR. ARGUMENTATIVE NOT FOLLOWING VERBAL REDIRECTION. HALDOL AND ATIVAN IM ADMINISTERED PER ORDERS.
[2020-02-04 09:00] LABS: BASOPHILS 0.5 % (0-2); EOSINOPHILS 2.5 % (0-7); HEMATOCRIT 43.3 % (36.0-48.0); HEMOGLOBIN 13.5 g/dL (12-16); IMMATURE GRANULOCYTES 0.3 % (0-5); LYMPHOCYTES 28.5 % (15-50); MCH 28.6 pg (26.0-34.0); MCHC 31.2 g/dL (31.0-37.0); MCV 91.7 fL (80.0-100.0); MEAN PLATELET VOLUME 9.5 fL (7.4-10.4); MONOCYTES 13.8 % (2-11); NEUTROPHILS 54.4 % (40-80); RBC 4.72 10x6/uL (4.00-5.40); RDW 17.4 % (11.5-14.5); WBC 9.3 10x3/uL (4.8-10.8)
[2020-02-04 09:01] LABS: PLATELET COUNT 205 10x3/uL (130-400)
[2020-02-04 09:13] LABS: CALCIUM 9.3 mg/dL (8.5-10.1); CARBON DIOXIDE 28.6 mmol/L (21.0-32.0); POTASSIUM - SERUM 3.6 mmol/L (3.5-5.1)
--- NOTE | 2020-02-04 10:17 | NUR ---
PT DAUGHTER SHERLYN CALLED TO CHECK ON HER MOTHER. PASSCODE GIVEN. NURSE GAVE AN UPDATE ON HER. SHE WAS NOT FEELING WELL THIS MORNING AND THE DOCTOR ORDERED HER LABS, CHEST X-RAY AND SOME COUGH MEDS. NURSE EXPLAINED THAT HER CHEST X-RAY AND LABS WERE CLEAR. NO INFECTION. SHE WAS RESTING AT THIS TIME. DAUGHTER ASKED ABOUT PHONE TIME. SHE SAID SHE CALLED YESTERDAY AND THEY WERE EATING AND SHE DID NOT GET A CHANCE TO TALK TO HER SINCE IT WAS AFTER 1930 OUR TIME BEFORE SHE GOT BACK HOME. NURSE EXPLAINED WE DID HAVE A HECTIC TIME YESTERDAY AFTERNOON AND IT WAS OKAY WITH THIS NURSE IF SHE CALLED AT A LATER TIME IF SHE WAS STILL EATING OR UNABLE TO TALK ON THE PHONE. SHE THANKED NURSE AND VERBALIZIED UNDERSTANDING.
[2020-02-04 10:30] VITALS: BP 152/69
--- NOTE | 2020-02-04 16:29 | NUR ---
PT HAS RESTED MOST OF THE DAY. SHE HAS A ROUTINE COUGH MEDICINE AND UPDRAFT TREATMENTS. SHE IS TOLERATING THEM WELL.
[2020-02-04 20:00] VITALS: BP 148/71
--- NOTE | 2020-02-04 21:47 | NUR ---
PT RESTLESS AND WANDERING HALLS. NOT FOLLOWING REDIRECTION. PRN HALDOL AND ATIVAN IM ADMINISTERED PER ORDERS.
--- NOTE | 2020-02-05 01:05 | NUR ---
B)RECEIVED PATIENT WALKING AROUND IN THE DAYROOM AND DINING ROOM. CONFUSED AND DISORIENTED. CLINGS TO CERTAIN PEOPLE AND WILL FOLLOW THEM AROUND. I)ADMINISTER MEDS AND MONITOR COMPLIANCE. REORIENT NEEDED. R)MED COMPLIANT. POOR REORIENTATION DUE TO IMPAIRED ABILITY TO PROCESS AND RETAIN INFORMATION. P)CONTINUE POC AND PROVIDE SAFE ENVIRONMENT.
[2020-02-05 09:36] VITALS: BP 134/62
--- NOTE | 2020-02-05 14:13 | NUR ---
REC'D PT LAYING IN BED WITH EYES CLOSED. NO ACUTE DISTRESS NOTED. PT IS FEELING BETTER THAN A.M. BEHAVIORS REPORTED FROM PREVIOUS SHIFT. PT IS CONFUSED AND DISORIENTED. PT IS ALERT TO SELF ONLY. PT IS COMPLIANT WITH MEDS, VITALS AND ASSESSMENTS. PT AMBULATES WITH WALKER OR WITH ONE PERSON ASSISTANCE. REDIRECT AND REORIENT NEEDED. WILL CONT PLAN OF CARE.
[2020-02-05 20:00] VITALS: BP 172/81
--- NOTE | 2020-02-05 22:45 | NUR ---
RECEIVED IN HALLWAY OUTSIDE OF NURSES STATION. VERY CONFUSED. INTRUSIVE AT TIMES. PACING HALLWAY. INCREASING ANXIETY. PRN ATIVAN 0.5 MG IM GIVEN AT 2240 FOR INCREASING ANXIETY. PRNHALDOL 2 MG IM GIVEN AT 2240 FOR PSYCHOTIC BEHAVIOR. CONTINUE TO MONITOR. CONTINUE PLAN OF CARE
--- NOTE | 2020-02-05 23:33 | NUR ---
RESTING IN BED WITH EYES CLOSED.
--- NOTE | 2020-02-06 09:00 | NUR ---
RECEIVED IN HALLWAY OUTSIDE OF NURSES STATION. CALM AND COOPERATIVE WITH CARE AND ASSESSMENT. NO AGGRESSIVE BEHAVIOR. NO HALLUCINATIONS. REDIRECT AND REORIENT NEEDED. EATING BREAKFAST AT THIS TIME. CONTINUE PLAN OF CARE.
--- NOTE | 2020-02-06 09:09 | NUR ---
SW SPOKE TO PT'S , RICHAR, TO REPORT PT DISCHARGING TO [facility] TODAY AT 3PM. RICHAR VOICED UNDERSTANDING.
[2020-02-06] MEDS ORDERED: NORVASC5 MG PO (09:56)
[2020-02-06] MEDS ORDERED: LISINOPRIL10 MG PO (09:56)
[2020-02-06] MEDS ORDERED: DESERYL PO (09:57)
[2020-02-06] MEDS ORDERED: ACETAMINOPHEN500 M1 PO (09:57)
[2020-02-06] MEDS ORDERED: NAMENDA5 MG PO (09:57)
[2020-02-06] MEDS ORDERED: VITAMIN B-12250 MC3 PO (09:58)
[2020-02-06] MEDS ORDERED: GEODON20 MG PO (09:58)
[2020-02-06 10:55] VITALS: BP 106/62
--- NOTE | 2020-02-06 13:37 | PN ---
PATIENT:LOU NUNES MEDICAL RECORD: [id number] LOCATION:[facility] ADMISSION DATE: 01/24/20 PROGRESS NOTE DATE OF SERVICE: 02/02/2020 SUBJECTIVE: The patient's case was discussed with staff. She has no new complaint. OBJECTIVE: The patient is still not eating very well. She is eating less than half of what is being presented to her and that is in spite of the fact that she is also receiving Megace for appetite stimulation. I do not think the loss of appetite is related to an underlying mood disorder, but is probably associated with an advanced dementia. Staff is encouraging her to eat, trying to give her snacks and I think everything that can reasonably be done is being done. The patient is only 5 feet tall. She weighs 111 pounds, so she is not seriously underweight, but she will be if this pattern continues. She is compliant with her medications. Her behavior is significantly better. ASSESSMENT: Dementia. PLAN: Current medicines are going to be maintained. I think the patient would be ready for discharge if we can improve her oral intake and a prison was accepting of her. At this point, she has been referred to 2 different nursing homes and I do not have any information about either of them accepting her. If I am unable to improve her oral intake, then it may be necessary to refer her to palliative care. TRANSINT:[id number] Voice Confirmation ID: [id number] DOCUMENT ID: [id number] MARSHAL DEAL MD at 1337 CC: [id number] DICTATION DATE: 02/02/201715 DIESEL POWERPLANT MECHANIC HELPER: 02/03/20 0214 ADM IN [place] [id number] [place] [address]
--- NOTE | 2020-02-06 13:37 | PN ---
PATIENT:LOU NUNES MEDICAL RECORD: [id number] LOCATION:[facility] ADMISSION DATE: 01/24/20 PROGRESS NOTE DATE OF SERVICE: 02/03/2020 SUBJECTIVE: The patient reports that she is doing okay. The patient is ambulating and she is presently smiling. The patient states that she does not feel too hungry and denied feeling anxious. OBJECTIVE: The patient is disoriented. General appearance that she is appropriate. Her orientation, she is alert to person. She is disoriented to place, time, or situation. Her speech is soft and low tone and low volume. Her associations are loose. Her eye contact was good. Her judgment and insight are impaired. Her mood is depressed and anxious. Her affect is restricted. She has mild anxiety. Memory is poor for remote and recent events. The patient does not appear to be attending to any visual or auditory hallucination. The patient denies any thoughts of suicide. Her judgment is poor. Her impulsivity is high. Her food intake for breakfast was 25%. She ate 50% for lunch and dinner and 100% for snack. The patient is sleeping well and tolerating her medications. ASSESSMENT: No change in diagnosis. PLAN: Continue to monitor her medications. We will continue to monitor her oral intake. They are still looking for usp placement. Also encouraged to offer more snacks as she did eat 100% of her snacks. We will continue to monitor and stabilize her mood. Dictated By: Magda Jordan APN I have interviewed/examined the above patient and agree with these documented findings. TRANSINT:[id number] Voice Confirmation ID: [id number] DOCUMENT ID: [id number] MARSHAL DEAL MD at 1337 CC: [id number] DICTATION DATE: 02/03/20 1751 LOAD OUT WORKER: 02/04/20 0002 ADM IN [facility] [address] [place] [address]
--- NOTE | 2020-02-06 13:37 | PN ---
PATIENT:LOU NUNES MEDICAL RECORD: [id number] LOCATION:[facility] ADMISSION DATE: 01/24/20 PROGRESS NOTE DATE OF SERVICE: 02/04/2020 DATE OF SERVICE: 02/04/2020 SUBJECTIVE: The patient is reclining in supine position on the sofa in the group room and staff reports she has been sleeping all morning. The patient was medicated last night with Haldol and Ativan for anxiety. She was pacing and walking around at about 1:00 a.m. The patient was also seen by the medical, so case was discussed with staff. OBJECTIVE: The patient is resting quietly. Respirations are regular. MSE is difficult to complete because of the patient sleeping and medical illnesses. ASSESSMENT: No change in psychiatric diagnosis. PLAN: To continue to monitor her medications, would consider medication changes, pending her response to treatment for her chronic obstructive pulmonary disease we will encourage intake and continue to monitor for any hallucinations or confusion or aggression and to work to stabilize those and her intake. Dictated By: Magda Jordan APN I have interviewed/examined the above patient and agree with these documented findings. TRANSINT:[id number] Voice Confirmation ID: [id number] DOCUMENT ID: [id number] MARSHAL DEAL MD at 1337 CC: [id number] DICTATION DATE: 02/04/20 1116 PROJECT MANAGEMENT IT SPECIALIST: 02/04/20 1628 ADM IN [facility] [address] [place] [address]
--- NOTE | 2020-02-06 13:37 | PN ---
PATIENT:LOU NUNES MEDICAL RECORD: [id number] LOCATION:[facility] ADMISSION DATE: 01/24/20 PROGRESS NOTE DATE OF SERVICE: 02/05/2020 SUBJECTIVE: The patient is ambulated in the shields today. She is presently smiling. She denies any needs and ate well and slept 8 hours. She was medicated last night with p.r.n. for combative and difficulty behavior, and the case was reviewed with staff. OBJECTIVE: The patient is disoriented is mildly disheveled. Her general orientation, she is alert to person and place, disoriented to time and situation. Her speech is soft, low tone, low volume. Her associations are intact. Her eye contact is good. Her insight are impaired. Her thought concentration is circumstantial. Her mood is depressed and anxious and her affect is restricted. Her anxiety is mild. Her memory is poor for both recent and remote events. She does not appear to be attending to any visual or auditory hallucination, and her judgment and insight are poor and impulsivity is high. ASSESSMENT: No changes in diagnosis. PLAN: Did start the patient on Namenda 5 mg b.i.d. The patient seems to be responding to her respiratory treatment. We will continue to monitor her oral intake, which was better. We will continue to monitor her mood and monitor for any signs or symptoms of psychosis, confusion or aggressive behavior. Goal will be to keep the patient safe and to be able to optimize her return to the least restrictive level of care. Dictated By: Magda Jordan APN I have interviewed/examined the above patient and agree with these documented findings. TRANSINT:[id number] Voice Confirmation ID: [id number] DOCUMENT ID: [id number] MARSHAL DEAL MD at 1337 CC: [id number] DICTATION DATE: 02/05/20 1841 SAMPLE TAILOR: 02/06/20 0548 [facility] IN [place] [id number] [place] [address]
--- NOTE | 2020-02-06 16:36 | NUR ---
PATIENT DISCHARGED TO [facility]. REPORT CALLED TO LEV OBRIEN. PAPERWORK AND DISCHARGE MED LIST FAXED TO [facility]. BELONGINGS SENT WITH PATIENT.
--- NOTE | 2020-02-07 15:11 | PN ---
PATIENT:LOU NUNES MEDICAL RECORD: [id number] LOCATION:[facility] ADMISSION DATE: 01/24/20 PROGRESS NOTE DATE OF SERVICE: 02/06/2020 SUBJECTIVE: The patient's case was discussed with staff. She has no new complaint. OBJECTIVE: The patient denies intent to harm herself or others. She is generally tolerating her medicines well. ASSESSMENT: Dementia. PLAN: The patient will be transitioned out of the hospital today. She is going to go to a local fpc. I see no evidence of acute or direct dangerousness. Her long-term prognosis is guarded. TRANSINT:[id number] Voice Confirmation ID: [id number] DOCUMENT ID: [id number] MARSHAL DEAL MD at 1511 CC: [id number] DICTATION DATE: 02/06/20 1639 FARMWORKER DAIRY: 02/07/20 0320 DIS IN 02/06/20 [id number] [place] [address]
== END 2020-02-06 16:38 | DRG 884 ==
LOC: D.ER 18:43 → D.PSYCH 22:24
PROVIDERS: Family Medicine; ADMIT Psychiatry & Neurology Psychiatry; ATTEND Psychiatry & Neurology Psychiatry
DX: F01.50 Vascular dementia, unspecified severity, without behavioral disturbance, psychotic disturbance, mood disturbance, and anxiety (principal); J44.9 Chronic obstructive pulmonary disease, unspecified; I10 Essential (primary) hypertension; F41.9 Anxiety disorder, unspecified; M19.90 Unspecified osteoarthritis, unspecified site; E53.8 Deficiency of other specified B group vitamins; R63.0 Anorexia; R11.10 Vomiting, unspecified; E78.5 Hyperlipidemia, unspecified; H35.30 Unspecified macular degeneration

== ENCOUNTER 2020-03-11 09:00 | Inpatient (IN) | payer MEDICARE ==
[~2020-03-11] VITALS: Ht 152.9 cm
[~2020-03-11 09:00] MED LIST changes: +ACETAMINOPHEN500 M1 PO; +BAYER CHEWABLE81 MG PO; +DESERYL PO; +GEODON20 MG PO; +NAMENDA5 MG PO; +NORVASC5 MG PO; +VITAMIN B-12250 MC3 PO
[2020-03-11] MEDS ORDERED: IMODIUM2 MG PO (09:13)
[2020-03-11] MEDS ORDERED: PULMICORT0.25 MG/1 INH (09:14)
[2020-03-11] MEDS ORDERED: TRAZODONE HCL150 MG PO (09:14)
[2020-03-11] MEDS ORDERED: ATIVAN0.5 MG PO (09:16)
[2020-03-11 09:25] LABS: BASOPHILS 0.5 % (0-2); EOSINOPHILS 2.4 % (0-7); HEMATOCRIT 44.4 % (36.0-48.0); HEMOGLOBIN 13.4 g/dL (12-16); IMMATURE GRANULOCYTES 0.3 % (0-5); LYMPHOCYTES 16.2 % (15-50); MCH 28.7 pg (26.0-34.0); MCHC 30.2 g/dL (31.0-37.0); MCV 95.1 fL (80.0-100.0); MEAN PLATELET VOLUME 9.6 fL (7.4-10.4); MONOCYTES 9.4 % (2-11); NEUTROPHILS 71.2 % (40-80); RBC 4.67 10x6/uL (4.00-5.40); RDW 17.3 % (11.5-14.5); WBC 5.9 10x3/uL (4.8-10.8)
[2020-03-11 09:27] LABS: PLATELET COUNT 274 10x3/uL (130-400)
[2020-03-11 09:31] LABS: INR 0.95 (0.85-1.17); PROTIME 12.6 SECONDS (11.6-15.0)
[2020-03-11 09:36] LABS: ANION GAP 11.3 mmol/L (8-16); CALCIUM 8.8 mg/dL (8.5-10.1); CARBON DIOXIDE 29.5 mmol/L (21.0-32.0); CREATININE - SERUM 1.2 mg/dL (0.6-1.3); POTASSIUM - SERUM 3.8 mmol/L (3.5-5.1)
[2020-03-11 09:42] LABS: ALBUMIN 3.2 g/dL (3.4-5.0); BILIRUBIN - TOTAL 0.28 mg/dL (0.2-1.3); PROTEIN - SERUM 6.5 g/dL (6.4-8.2)
[2020-03-11 11:22] LABS: BILIRUBIN NEGATIVE (NEGATIVE); GLUCOSE NEGATIVE (NEGATIVE); KETONE SMALL mg/dL (NEGATIVE); NITRITE NEGATIVE (NEGATIVE); UROBILINOGEN NORMAL (NORMAL)
--- NOTE | 2020-03-11 11:43 | NUR ---
PT UP TO RESTROOM FORMED STOOL NOTED, WITH BLOOD STREAKED AREAS TO EACH STOOL.
--- NOTE | 2020-03-11 11:43 | NUR ---
PTS CALLED STATES PT IS A WANDERER.
--- NOTE | 2020-03-11 12:41 | NUR ---
PT ARRIVES TO ROOM WITH IV IN LAC, CONFUSED, ANGRY, MEDLIST PROVIDED PER DETENTION, REFUSES TO STAY IN ROOM, UP WALKING, STATES "IM NOT STAYING HOME" PLACING CALL TO TO TALK WITH PT, WALKED WITH PT TO FIX COFFEE, CONT TO MONITOR
[2020-03-11 13:00] VITALS: Ht 152.9 cm
--- NOTE | 2020-03-11 13:16 | NUR ---
PT ON PHONE WITH , WORD SALAD, ANGRY, YELLING CURSING, WANTS TO COME PICK HER UP
--- NOTE | 2020-03-11 14:32 | NUR ---
MEDICATED WITH MÓNICA IM, CONT TO MONITOR PT FOR SEDATION, TALKED WITH ON PHONE
--- NOTE | 2020-03-11 14:36 | NUR ---
GOING TO ICU ROOM 2311 FOR BEHAVIOR
--- NOTE | 2020-03-11 14:50 | NUR ---
RECEIVED PT TO ROOM 2311 ACCOMPANIED BY STAFF. PT IN BED RESTING WITH EYES OPEN. WILL CONT TO MONITOR.
[2020-03-11 15:00] VITALS: BP 189/98
--- NOTE | 2020-03-11 15:00 | NUR ---
VS- TEMP- 98.7 BLOOD PRESSURE- 189/98 HEART RATE- 89 OXYGEN SAT- 94
[2020-03-11 15:16] LABS: HEMATOCRIT 42.6 % (36.0-48.0)
--- NOTE | 2020-03-11 15:56 | NUR ---
PT TRYING TO GET OUT OF BED MULTIPLE TIMES, SITTING IN ROOM WITH PT WHILE SHE READS THE NEWSPAPER. KEEPING PT OCCUPIED. NO ACUTE NEEDS OR DISTRESS NOTED AT THIS TIME. WILL CONT TO MONITOR.
[2020-03-11 16:00] VITALS: BP 180/91
[2020-03-11 17:00] VITALS: BP 160/85
--- NOTE | 2020-03-11 17:00 | NUR ---
PT REFUSING VITAL SIGNS, PT RIPPED OFF EQUIPMENT. NO ACUTE NEEDS OR DISTRESS NOTED AT THIS TIME. WILL CONT TO MONITOR.
--- NOTE | 2020-03-11 19:01 | NUR ---
REPORT CALLED TO NATALIYA ON MED SURG. WILL CONT TO MONITOR.
--- NOTE | 2020-03-11 20:10 | NUR ---
REPORT CALLED TO JENNIFER CONRAD AT THIS TIME
--- NOTE | 2020-03-11 20:16 | NUR ---
DR NEWMAN CALLED ABOUT PATIENTS IV OUT, HE ADVISWED TO LEAVE IV OUT FOR NOW BUT IF AND CHANGES IN COND OR LABS TO RESTART PER PREVIOUS ORDER
--- NOTE | 2020-03-11 21:00 | NUR ---
PATIENT TRANS FROM ICU. ASSISTED PATIENT TO AND FROM RESTROOM AND COMPLETED ASSESSMENT. EXPLAINED ENCLOSURE BED TO PATIENT. GAVE PATIENT CALL LIGHT AND ENCOURAGED PATIENT TO CALL IF SHE HAS NEEDS. WILL CONTINUE TO MONITOR.
--- NOTE | 2020-03-11 21:15 | NUR ---
CENTRAL SERVICE SUPPLY DISTRIBUTOR ATTEMPTED TO DRAW BLOOD FROM PATIENT AND PATIENT REFUSED. I EXPLAINED TO THE PATIENT WHY IT IS IMPORTANT TO LET LAB DRAW HER BLOOD AND PATIENT CONTINUED TO REFUSE. I CALMED THE PATIENT DOWN ENOUGH TO CHECK HER VITALS AND AGAIN TRIED TO EXPLAIN TO THE PATIENT WHY LABS WERE ORDERED. I ASKED THE PATIENT IF SHE WOULD ALLOW ME OR THE CENTRAL SERVICE SUPPLY DISTRIBUTOR TO DRAW HER BLOOD, THE PATIENT STATED "NO YOU BITCH". I ASKED THE PATIENT IF SHE IS GOING TO TAKE HER NIGHT PILLS FOR ME AND THE PATIENT AGAIN STATED "NO YOU BITCH". PATIENT IS IN ENCLOSURE BED AT THIS TIME. PATIENT IS CONFUSED AND AGITATED. I HAVE ATTEMPTED MULTIPLE TIMES TO REORIENT THE PATIENT WITHOUTH SUCCESS. WILL CONTINUE TO MONITOR THE PATIENT.
[2020-03-11 22:30] VITALS: BP 136/64
[2020-03-12] VITALS (7 sets, daily range): BP systolic 123–170; BP diastolic 60–84
--- NOTE | 2020-03-12 05:47 | NUR ---
ASSISTED PATIENT TO AND FROM RESTROOM. PATIENT IS CONFUSED, HOWEVER, COOPERATIVE AT THIS TIME. PATIENT VOIDED AND DENIES OTHER NEEDS AT THIS TIME.
[2020-03-12 06:19] LABS: BASOPHILS 0.7 % (0-2); EOSINOPHILS 1.7 % (0-7); HEMATOCRIT 44.7 % (36.0-48.0); HEMOGLOBIN 13.6 g/dL (12-16); IMMATURE GRANULOCYTES 0.1 % (0-5); LYMPHOCYTES 15.7 % (15-50); MCH 29.1 pg (26.0-34.0); MCHC 30.4 g/dL (31.0-37.0); MCV 95.5 fL (80.0-100.0); MEAN PLATELET VOLUME 9.7 fL (7.4-10.4); MONOCYTES 12.4 % (2-11); NEUTROPHILS 69.4 % (40-80); PLATELET COUNT 258 10x3/uL (130-400); RBC 4.68 10x6/uL (4.00-5.40); RDW 17.2 % (11.5-14.5)
[2020-03-12 06:55] LABS: ANION GAP 9.6 mmol/L (8-16); CARBON DIOXIDE 31.1 mmol/L (21.0-32.0); CREATININE - SERUM 1.1 mg/dL (0.6-1.3); POTASSIUM - SERUM 3.7 mmol/L (3.5-5.1)
--- NOTE | 2020-03-12 07:15 | NUR ---
GIVING BEDSIDE SHIFT REPORT, SHE IS SLEEPING AT THIS TIME. THE BED IS ZIPPED AND THE CALL LIGHT IS IN THE BED WITH HER.
--- NOTE | 2020-03-12 08:02 | NUR ---
HE CALLED THIS MORNING. HE IS VERNADaniel PRASHANT, . HE WOULD LIKE FOR HER TO COME HOME. SHE DOES NOT HAVE AN IV. SHE VOIDED THIS MORNING, NO STOOL SEEN OR REPORTED BY SPEECH PATHOLOGY TEACHER. HER H/H IN UNCHANGED.
--- NOTE | 2020-03-12 09:50 | NUR ---
DR. MARTINS ROUNDED. I SAT IN THE ROOM WHILE SHE ATE BREAKFAST 100% OF THE CLEAR LIQUID DIET IN THE CHAIR. I WALKED HER TO THE BATHROOM, SHE VOIDED AND IS HAVING DIARRHEA (GREEN IN COLOR).
--- NOTE | 2020-03-12 10:20 | NUR ---
WALKED TO THE BATHROOM, USED THE BATHROOM. NEW UNDERWEAR AND GOWN ON, PUT MEDICATION AND CREAM TO HER RECTAL AREA.
--- NOTE | 2020-03-12 11:00 | NUR ---
SHE WALKED ONE LOOP AROUND THE NURSES STATION, WITH ME. SHE WAS A LITTLE SOB. SHE IS RESTING IN HER BED, SIDES ZIPPED AND CALL LIGHT IN THE BED WITH HER.
--- NOTE | 2020-03-12 12:20 | NUR ---
I SAT HER UP IN THE CHAIR TO EAT LUNCH. SHE DID NOT EAT OR DRINK ANYTHING, SHE TASTED OF IT AND SAY "I DON'T LIKE IT". I WALKED HER TO THE BATHROOM, SHE DID NOT USE THE BATHROOM.
[2020-03-12 13:04] LABS: HEMATOCRIT 41.9 % (36.0-48.0)
--- NOTE | 2020-03-12 13:15 | NUR ---
SHE IS YELLING OUT, I WALKED HER TO THE BATHROOM. SHE DID NOT USE THE BATHROOM. I CALLED HER , PRASHANT, SHE IS TALKING TO HIM.
--- NOTE | 2020-03-12 14:15 | NUR ---
SHE IS WALKING AROUND THE UNIT WITH ME. SHE VOIDED IN THE BATHROOM. WE CALLED HER . PRASHANT AGAIN. NO BM'S SINCE THIS MORNING AFTER BREAKFAST.
--- NOTE | 2020-03-12 15:20 | NUR ---
SHE IS RESTING IN THE BED WITH THE CALL LIGHT. NO BM, SHE IS VOIDING IN THE BATHROOM.
--- NOTE | 2020-03-12 16:10 | NUR ---
SHE HAS WALKED IN THE HALLWAY, MAKING 2 LAPS THIS TIME. SHE SAT ON THE POTTY, BUT DID NOT DO ANYTHING. PLACED BACK IN THE BED WITH THE CALL LIGHT AND THE BED ZIPPED.
--- NOTE | 2020-03-12 17:30 | NUR ---
SHE ATE A FEW BITES OF HER DINNER, SHE STATES "I DON'T EAT MUCH". SHE DRANK SOME TEA AND WATER. SHE IS IN A WHEELCHAIR WITH STAFF AT THE NURSES STATION.
--- NOTE | 2020-03-12 19:15 | NUR ---
PATIENT IN ENCLOSURE BED FOR SAFETY. PATIENT IS CONFUSED, TALKS WITH WORD SALAD. NO IV, ON ROOM AIR. MOVING FROM ONE END OF BED TO THE OTHER, TALKING TO STAFF WE GO BY AND IN ROOM. TALKING WITH NOONE IN ROOM. NO S/S OF DISTRESS NO NEEDS AT THIS TIME.
--- NOTE | 2020-03-12 20:50 | NUR ---
PATIENT RESTING TOOK MEEDS WHOLE WITH WATER. NO S/S OF DISTRESS. TALKING WITH WORD SALAD. REDNESS NOTED TO BUTTOCKS WHEN CREAM APPLIED. NOP FUTHER NEEDS AT THIS TIME.
--- NOTE | 2020-03-12 23:14 | NUR ---
LAD WAS IN TO DRAW BLOOD PATIENT REFUSED.
--- NOTE | 2020-03-12 23:23 | NUR ---
RESTING IN BED SLEEPING WITH HEAD TO DOOR. REMAINS IN ENCLOSURRE BED WITH NO NEEDS OR DISTRESS.
[2020-03-13] VITALS (8 sets, daily range): BP systolic 120–135; BP diastolic 51–88
[2020-03-13 07:06] LABS: BASOPHILS 0.5 % (0-2); EOSINOPHILS 2.4 % (0-7); HEMATOCRIT 42.8 % (36.0-48.0); IMMATURE GRANULOCYTES 0.2 % (0-5); LYMPHOCYTES 14.1 % (15-50); MCHC 30.4 g/dL (31.0-37.0); MCV 95.3 fL (80.0-100.0); MEAN PLATELET VOLUME 9.5 fL (7.4-10.4); MONOCYTES 14.9 % (2-11); NEUTROPHILS 67.9 % (40-80); PLATELET COUNT 246 10x3/uL (130-400); RBC 4.49 10x6/uL (4.00-5.40); RDW 17.1 % (11.5-14.5); WBC 6.3 10x3/uL (4.8-10.8)
[2020-03-13 07:26] LABS: ALBUMIN 3.1 g/dL (3.4-5.0); ANION GAP 9.9 mmol/L (8-16); BILIRUBIN - TOTAL 0.39 mg/dL (0.2-1.3); CALCIUM 8.5 mg/dL (8.5-10.1); CARBON DIOXIDE 30.5 mmol/L (21.0-32.0); CREATININE - SERUM 1.1 mg/dL (0.6-1.3); POTASSIUM - SERUM 3.4 mmol/L (3.5-5.1); PROTEIN - SERUM 5.9 g/dL (6.4-8.2)
--- NOTE | 2020-03-13 09:37 | NUR ---
SHE HAS BEEN UP WITH THE TECH, USED THE BATHROOM SET UP IN THE CHAIR TO EAT BREAKFAST. SHE IS BACK IN THE BED ZIPPED UP WITH THE CALL LIGHT WITH HER. NO BM'S DURING THE NIGHT. HE (PRASHANT) WANTS TO TAKE HER HOME.
--- NOTE | 2020-03-13 11:00 | NUR ---
she is walking around the unit with staff. she is yelling out. she is back in the bed with the call light and the bed is zipped.
--- NOTE | 2020-03-13 14:00 | NUR ---
she sat up in the chair to eat and walked to the bathroom with staff. she is in the bed with the call light and it is zipped up .
--- NOTE | 2020-03-13 16:00 | NUR ---
she is walking around the unit with staff, used the bathroom. she is back in the bed with the call light and the bed is zipped. she talked to her and daughter on the phone today. the , Maurice, is wanting her to come home with him.
--- NOTE | 2020-03-13 16:45 | CN ---
PATIENT NAME:LOU NUNES MEDICAL RECORD: [id number] : 34 LOCATION:D.[facility] ADMIT DATE: 03/11/20 ACCOUNT: [id number] CONSULTING PHYSICIAN: MARSHAL DEAL MD REFERRING PHYSICIAN: RALPH NEWMAN MD DATE OF CONSULTATION: 03/13/2020 IDENTIFYING DATA: The patient is 89 years old and she is admitted to the hospital secondary to a lower GI bleed. CHIEF COMPLAINT: Agitation. HISTORY OF PRESENT ILLNESS: The patient comes here from the [facility]. She has a long history of multiple medical problems including hypertension, COPD and now the lower GI bleed that has been addressed. Apparently, the patient also had a cerebral aneurysm in the remote past, which may be a contributing factor to her underlying mental status. Currently, she is in a Arturo bed and is very agitated. She is delusional, angry and clearly very disorganized. She is essentially uninterviewable. She was a patient on group home in December of this year and at that time I diagnosed her with vascular dementia. Unfortunately, currently again she is only oriented to person and is not allowing me to ask her questions. ASSESSMENT: Vascular dementia. PLAN: The patient is clearly quite confused, agitated, and disruptive. I am going to order a scheduled and p.r.n. medications to calm her. It is my recommendation that she be transferred to group home for ongoing stabilization. I am told by her primary nurse that the wants her to just go home with him and not even return to the [facility]. I advised against this and recommend she be transferred to the behavioral unit for treatment. I will follow her while hospitalized here to ensure that the medications currently prescribed are effective. TRANSINT:[id number] Voice Confirmation ID: [id number] DOCUMENT ID: [id number] MARSHAL DEAL MD at 1645 CC: [id number] DICTATION DATE: 03/13/20 1558 FACILITIES MAINTENANCE MANAGER: 03/13/20 1620 ADM IN [id number] [place] [address]
--- NOTE | 2020-03-13 16:51 | MORECARE ---
CASE MANAGEMENT DISCHARGE SUMMARY PATIENT: LOU NUNES UNIT: [id number] ADM DATE: 03/11/20 AGE: 89 : 32 SEX: F ROOM/BED: D.2238 AUTHOR: DAVID MUELLER PHYSICIAN: REFERRING PHYSICIAN: RALPH NEWMAN MD DATE OF SERVICE: 03/13/20 Discharge Plan Patient Name: LOU NUNES Facility: [facility]:[place] : 1930 Planned Disposition: Anticipated Discharge Date: Discharge Date: Expected LOS: Initial Reviewer: [email or web address] Initial Review Date: 03/11/2020 Generated: 03/13/20 5:50 pm Comments DCP- Discharge Planning Updated by [email or web address]: Saskia Mccall on 03/13/20 3:[address] RITTER HERE TO SEE PATIENT, HE WOULD NOE TO TAKE HER TO [facility] TO HELP HER. I HAVE CALLED HER TO LET HIM KNOW & HE WOULD LIKE TO TAKE HER HOME. I TOLD HIM THAT I WOULD TELL THE DOCTOR. RABIA NOTIFIED AND SHE SAID THAT SHE IS NOT BEING DISHCARGED TODAY. CM WILL CONTINUE TO FOLLOW AND ASSIST NEEDED PRASHANT IS THE POA & [phone] Patient Name: LOU NUNES Page [phone] at 1651 All edits/amendments must be made on the electronic document DICTATION DATE: 03/13/201649 FREIGHT RATE CLERK: SREE 03/13/201649 RPT#: [id number] DC DATE: STATUS: ADM IN [facility] [address] [place] [address] END OF REPORT
--- NOTE | 2020-03-13 18:30 | NUR ---
she is yelling and does not want to go to bed or set in the chair. she will not calm down, prn ativan given.
--- NOTE | 2020-03-13 19:00 | NUR ---
she is sleeping, he called to check on her.
[2020-03-14 01:08] VITALS: BP 100/62
[2020-03-14 02:45] VITALS: BP 110/66
[2020-03-14 03:48] LABS: BASOPHILS 0.8 % (0-2); EOSINOPHILS 4.9 % (0-7); HEMATOCRIT 42.4 % (36.0-48.0); HEMOGLOBIN 12.8 g/dL (12-16); IMMATURE GRANULOCYTES 0.2 % (0-5); LYMPHOCYTES 27.8 % (15-50); MCH 28.9 pg (26.0-34.0); MCHC 30.2 g/dL (31.0-37.0); MCV 95.7 fL (80.0-100.0); MEAN PLATELET VOLUME 9.6 fL (7.4-10.4); MONOCYTES 11.9 % (2-11); NEUTROPHILS 54.4 % (40-80); PLATELET COUNT 269 10x3/uL (130-400); RBC 4.43 10x6/uL (4.00-5.40); RDW 17.2 % (11.5-14.5); WBC 6.4 10x3/uL (4.8-10.8)
[2020-03-14 04:11] LABS: ALBUMIN 2.7 g/dL (3.4-5.0); ANION GAP 8.6 mmol/L (8-16); BILIRUBIN - TOTAL 0.28 mg/dL (0.2-1.3); CALCIUM 8.3 mg/dL (8.5-10.1); CARBON DIOXIDE 29.2 mmol/L (21.0-32.0); CREATININE - SERUM 0.9 mg/dL (0.6-1.3); PROTEIN - SERUM 5.8 g/dL (6.4-8.2)
[2020-03-14 04:52] LABS: POTASSIUM - SERUM 2.8 mmol/L (3.5-5.1)
[2020-03-14 05:38] VITALS: BP 120/50
--- NOTE | 2020-03-14 06:49 | NUR ---
LAB CALLED POTASSIUM OF 2.8 PATIENT ON PROTOCOL TRTMENT PER ORDERS.
--- NOTE | 2020-03-14 07:10 | NUR ---
CONFUSED THIS AM. SITTING UP IN [place] BED. NO C/O PAIN. NO S/S OF ACUTE DISTRESS NOTED. UP WITH ASSIST. DENIES ANY NEEDS AT THIS TIME. CALL LIGHT IN REACH. WILL CONTINUE TO MONITOR.
--- NOTE | 2020-03-14 09:24 | NUR ---
THIS NURSE HAD TO ASSIST PATIENT TO RESTROOM. PATIENT REFUSED TO GO BACK TO SIMEON BED AFTERWARDS. TRIED TO REDIRECT PATIENT. PATIENT THEN BACAME VERY AGITATED AND BEGAN CURSING AND SWINGING ARMS WITH HANDS CLOSED AT THIS NURSE. THIS NURSE CALLED FOR ASSISTANCE WITH PATIENT. ANOTHER NURSE TRIED TO REORIENT PATIENT. PATIENT BECAME EVEN MORE AGGRESSIVE. THIS NURSE THEN GAVE PATIENT 10MG GEODON IM IN LEFT DELTOID. PATIENT HAD TO BE RESTRAINED TO ADMINISTER INJECTION. PATIENT CONTINUED TO KICK AND HIT THIS NURSE. NURSE AIDED THIS NURSE IN ASSISTING PATIENT BACK INTO SIMEON BED. PATIENT CURSING CALLING THIS NURSE A "BITCH". DENIES ANYTHING FURTHER AT THIS TIME. WILL CONTINUE TO MONITOR.
[2020-03-14] MEDS ORDERED: GEODON20 M1 IM (09:42)
[2020-03-14] MEDS ORDERED: PERPHENAZINE2 MG PO (09:42)
[2020-03-14] MEDS ORDERED: ANUSOL-HC 2.5%30 GM TOPICAL (09:43)
[2020-03-14] MEDS ORDERED: PREPARATION H O57 GM TOPICAL (09:43)
[2020-03-14] MEDS ORDERED: PROTONIX40 MG PO (09:43)
[2020-03-14] MEDS ORDERED: ANUSOL-HC25 MG RC (09:43)
[2020-03-14 09:57] VITALS: BP 126/75
[2020-03-14] MEDS ORDERED: GEODON20 MG PO (11:39)
[2020-03-14] MEDS ORDERED: K-DUR20 MEQ PO (11:54)
--- NOTE | 2020-03-14 12:36 | MORECARE ---
CASE MANAGEMENT DISCHARGE SUMMARY PATIENT: LOU NUNES UNIT: [id number] ADM DATE: 03/11/20 AGE: 89 : 32 SEX: F ROOM/BED: D.2238 AUTHOR: DAVID MUELLER PHYSICIAN: REFERRING PHYSICIAN: RALPH NEWMAN MD DATE OF SERVICE: 03/14/20 Discharge Plan Patient Name: LOU NUNES Facility: [facility]:[place] : 1930 Planned Disposition: Anticipated Discharge Date: Discharge Date: Expected LOS: Initial Reviewer: [id number] Initial Review Date: 03/11/2020 Generated: 03/14/20 1:35 pm Comments DCP- Discharge Planning Updated by [id number]: Saskia Mccall on 03/13/20 3:[address] RITTER HERE TO SEE PATIENT, HE WOULD NOE TO TAKE HER TO [facility] TO HELP HER. I HAVE CALLED HER TO LET HIM KNOW & HE WOULD LIKE TO TAKE HER HOME. I TOLD HIM THAT I WOULD TELL THE DOCTOR. RABIA NOTIFIED AND SHE SAID THAT SHE IS NOT BEING DISHCARGED TODAY. CM WILL CONTINUE TO FOLLOW AND ASSIST NEEDED PRASHANT IS THE POA & [phone] External Providers External Provider: [facility] Next Contact Date: Service Request Date: Service Type: Resolution: Reviewer: Comments: Last DP export: 03/13/20 3:51 p Patient Name: LOU NUNES Page [phone] at 1236 All edits/amendments must be made on the electronic document DICTATION DATE: 03/14/20 1235 CRYSTAL GROWING TECHNICIAN: SREE 03/14/20 1235 RPT#: [id number] DC DATE: STATUS: ADM IN [facility] [address] [place] [address] END OF REPORT
--- NOTE | 2020-03-14 13:48 | MORECARE ---
CASE MANAGEMENT DISCHARGE SUMMARY PATIENT: LOU NUNES UNIT: [id number] ADM DATE: 03/11/20 AGE: 89 : 32 SEX: F ROOM/BED: D.2238 AUTHOR: DAVID MUELLER PHYSICIAN: REFERRING PHYSICIAN: ARLPH NEWMAN MD DATE OF SERVICE: 03/14/20 Discharge Plan Patient Name: LOU NUNES Facility: [facility]:[place] : 1930 Planned Disposition: Anticipated Discharge Date: Discharge Date: Expected LOS: Initial Reviewer: [id number] Initial Review Date: 03/11/2020 Generated: 03/14/20 2:48 pm Comments DCP- Discharge Planning Updated by [email or web address]: Saskia Mccall on 03/14/20 12:[address] SPOKE WITH THE AT LENGTH TODAY, HE IS INSISTANT ON HIS GOING HOME. HE IS AGREEABLE TO HOME HEALTH AND HE HAS ALREADY SET UP [facility]. I EXPLAINED TO HIM THAT IF IT BECOMES TO MUCH THAT HE CAN CALL RESIDENTIAL AND THEY CAN DIRECT ADMIT HER ( SPOKE WITH IVAN) I HAVE SENT A REFERRAL TO [facility] FOR NURSNG O&A AND LIFE ALERT DCP- Discharge Planning Updated by [id number]: Saskia Mccall on 03/13/20 3:[address] RITTER HERE TO SEE PATIENT, HE WOULD NOE TO TAKE HER TO [facility] TO HELP HER. I HAVE CALLED HER TO LET HIM KNOW & HE WOULD LIKE TO TAKE HER HOME. I TOLD HIM THAT I WOULD TELL THE DOCTOR. RABIA NOTIFIED AND SHE SAID THAT SHE IS NOT BEING DISHCARGED TODAY. CM WILL CONTINUE TO FOLLOW AND ASSIST NEEDED PRASHANT IS THE POA & [phone] External Providers [facility] Next Contact Date: Service Request Date: Service Type: Resolution: Reviewer: Comments: Last DP export: 03/14/20 11:36 a Patient Name: LOU NUNES Page [phone] at 1348 All edits/amendments must be made on the electronic document DICTATION DATE: 03/14/20 1348 CHILD DAY CARE PROVIDER: DM 03/14/20 1348 RPT#: [id number] DC DATE: STATUS: ADM IN [facility] [address] [place] [address] END OF REPORT
--- NOTE | 2020-03-14 14:40 | MORECARE ---
CASE MANAGEMENT DISCHARGE SUMMARY PATIENT: LOU NUNES UNIT: [id number] ADM DATE: 03/11/20 AGE: 89 : 32 SEX: F ROOM/BED: D.2238 AUTHOR: DAVID MUELLER PHYSICIAN: REFERRING PHYSICIAN: RALPH NEWMAN MD DATE OF SERVICE: 03/14/20 Discharge Plan Patient Name: LOU NUNES Facility: [facility]:[place] : 1930 Planned Disposition: Home with Home Health Anticipated Discharge Date: 03/14/20 Discharge Date: Expected LOS: 3 Initial Reviewer: [email or web address] Initial Review Date: 03/11/2020 Generated: 03/14/20 3:40 pm Comments DCP- Discharge Planning Updated by [email or web address]: Saskia Mccall on 03/14/20 12:[address] SPOKE WITH THE AT LENGTH TODAY, HE IS INSISTANT ON HIS GOING HOME. HE IS AGREEABLE TO HOME HEALTH AND HE HAS ALREADY SET UP [facility]. I EXPLAINED TO HIM THAT IF IT BECOMES TO MUCH THAT HE CAN CALL RETIREMENT AND THEY CAN DIRECT ADMIT HER ( SPOKE WITH IVAN) I HAVE SENT A REFERRAL TO [facility] FOR NURSNG O&A AND LIFE ALERT DCP- Discharge Planning Updated by [email or web address]: Saskia Mccall on 03/13/20 3:[address] RITTER HERE TO SEE PATIENT, HE WOULD NOE TO TAKE HER TO [facility] TO HELP HER. I HAVE CALLED HER TO LET HIM KNOW & HE WOULD LIKE TO TAKE HER HOME. I TOLD HIM THAT I WOULD TELL THE DOCTOR. RABIA NOTIFIED AND SHE SAID THAT SHE IS NOT BEING DISHCARGED TODAY. CM WILL CONTINUE TO FOLLOW AND ASSIST NEEDED PRAHSANT IS THE POA & [phone] Last DP export: 03/14/20 12:48 p Patient Name: LOU NUNES Page [phone] at 1440 All edits/amendments must be made on the electronic document DICTATION DATE: 03/14/20 1440 LUMBER STRAIGHTENER: SREE 03/14/20 1440 RPT#: [id number] DC DATE: STATUS: ADM IN [facility] [address] [facility] [place] [address] END OF REPORT
--- NOTE | 2020-03-14 15:35 | MORECARE ---
CASE MANAGEMENT DISCHARGE SUMMARY PATIENT: LOU NUNES UNIT: [id number] ADM DATE: 03/11/20 AGE: 89 : 32 SEX: F ROOM/BED: D.2238 AUTHOR: DAVID MUELLER PHYSICIAN: REFERRING PHYSICIAN: RALPH NEWMAN MD DATE OF SERVICE: 03/14/20 Discharge Plan Patient Name: LOU NUNES Facility: [facility]:[place] : 1930 Planned Disposition: Home with Home Health Anticipated Discharge Date: 03/14/20 Discharge Date: Expected LOS: 3 Initial Reviewer: [id number] Initial Review Date: 03/11/2020 Generated: 03/14/20 4:34 pm Comments DCP- Discharge Planning Updated by [id number]: Saskia Mccall on 03/14/20 12:[address] SPOKE WITH THE AT LENGTH TODAY, HE IS INSISTANT ON HIS GOING HOME. HE IS AGREEABLE TO HOME HEALTH AND HE HAS ALREADY SET UP [facility]. I EXPLAINED TO HIM THAT IF IT BECOMES TO MUCH THAT HE CAN CALL [facility] AND THEY CAN DIRECT ADMIT HER ( SPOKE WITH IVAN) I HAVE SENT A REFERRAL TO [facility] FOR NURSNG O&A AND LIFE ALERT DCP- Discharge Planning Updated by [email or web address]: Saskia Mccall on 03/13/20 3:[address] RITTER HERE TO SEE PATIENT, HE WOULD NOE TO TAKE HER TO [facility] TO HELP HER. I HAVE CALLED HER TO LET HIM KNOW & HE WOULD LIKE TO TAKE HER HOME. I TOLD HIM THAT I WOULD TELL THE DOCTOR. RABIA NOTIFIED AND SHE SAID THAT SHE IS NOT BEING DISHCARGED TODAY. CM WILL CONTINUE TO FOLLOW AND ASSIST NEEDED PRASHANT IS THE POA & [phone] Last DP export: 03/14/20 1:40 p Patient Name: LOU NUNSE Page [phone] at 1535 All edits/amendments must be made on the electronic document DICTATION DATE: 03/14/20 1534 NECK PINNER: SREE 03/14/201533 RPT#: [id number] DC DATE: STATUS: ADM IN [facility] [address] [place] [address] END OF REPORT
--- NOTE | 2020-03-14 15:42 | MORECARE ---
CASE MANAGEMENT DISCHARGE SUMMARY PATIENT: LOU NUNES UNIT: [id number] ADM DATE: 03/11/20 AGE: 89 : 32 SEX: F ROOM/BED: D.2238 AUTHOR: DAVID MUELLER PHYSICIAN: REFERRING PHYSICIAN: RALPH NEWMAN MD DATE OF SERVICE: 03/14/20 Discharge Plan Patient Name: LOU NUNES Facility: [facility]:[place] : 1930 Planned Disposition: Home with Home Health Anticipated Discharge Date: 03/14/20 Discharge Date: Expected LOS: 3 Initial Reviewer: [email or web address] Initial Review Date: 03/11/2020 Generated: 03/14/20 4:41 pm Comments DCP- Discharge Planning Updated by [id number]: Saskia Mccall on 03/14/20 2:[address] [facility] WILL ACCEPT THE PATIENT AND SEE HER ON SAT. IMM GIVEN EDUCATED ON ALL OPTIONS AND IS SO EXCIDED TO GET HIS HOME. DCP- Discharge Planning Updated by [email or web address]: Saskia Mccall on 03/14/20 12:[address] SPOKE WITH THE AT LENGTH TODAY, HE IS INSISTANT ON HIS GOING HOME. HE IS AGREEABLE TO HOME HEALTH AND HE HAS ALREADY SET UP [facility]. I EXPLAINED TO HIM THAT IF IT BECOMES TO MUCH THAT HE CAN CALL [facility] AND THEY CAN DIRECT ADMIT HER ( SPOKE WITH IVAN) I HAVE SENT A REFERRAL TO [facility] FOR NURSNG O&A AND LIFE ALERT DCP- Discharge Planning Updated by [id number]: Saskia Mccall on 03/13/20 3:[address] RITTER HERE TO SEE PATIENT, HE WOULD NOE TO TAKE HER TO [facility] TO HELP HER. I HAVE CALLED HER TO LET HIM KNOW & HE WOULD LIKE TO TAKE HER HOME. I TOLD HIM THAT I WOULD TELL THE DOCTOR. RABIA NOTIFIED AND SHE SAID THAT SHE IS NOT BEING DISHCARGED TODAY. CM WILL CONTINUE TO FOLLOW AND ASSIST NEEDED PRASHANT IS THE POA & [phone] Last DP export: 03/14/20 2:35 p Patient Name: LOU NUNES Page [phone] at 1542 All edits/amendments must be made on the electronic document DICTATION DATE: 03/14/201540 PERSONAL SHOPPER: SREE 03/14/201540 RPT#: [id number] DC DATE: STATUS: ADM IN [facility] [address] [place] [address] END OF REPORT
--- NOTE | 2020-03-14 15:44 | NUR ---
PATIENT DISCHARGED HOME WITH [facility]IA WHEELCHAIR. WENT OVER INSTRUCTIONS WITH . DENIES ANYTHING FURTHER AT THIS TIME.
--- NOTE | 2020-03-15 09:07 | MORECARE ---
CASE MANAGEMENT DISCHARGE SUMMARY PATIENT: LOU NUNES UNIT: [id number] ADM DATE: 03/11/20 AGE: 89 : 32 SEX: F ROOM/BED: D.2238 AUTHOR: ERVIN,DOC PHYSICIAN: REFERRING PHYSICIAN: RALPH NEWMAN MD DATE OF SERVICE: 03/15/20 Discharge Plan Patient Name: LOU NUNES Facility: [facility]:[place] : 1930 Planned Disposition: Home with Home Health Anticipated Discharge Date: 03/14/20 Discharge Date: 03/14/2020 Expected LOS: 3 Initial Reviewer: [email or web address] Initial Review Date: 03/11/2020 Generated: 03/15/20 10:06 am Comments DCP- Discharge Planning Updated by [email or web address]: Saskia Mccall on 03/14/20 2:[address] [facility] WILL ACCEPT THE PATIENT AND SEE HER ON SAT. IMM GIVEN EDUCATED ON ALL OPTIONS AND IS SO EXCIDED TO GET HIS HOME. DCP- Discharge Planning Updated by [id number]: Saskia Mccall on 03/14/20 12:[address] SPOKE WITH THE AT LENGTH TODAY, HE IS INSISTANT ON HIS GOING HOME. HE IS AGREEABLE TO HOME HEALTH AND HE HAS ALREADY SET UP [facility]. I EXPLAINED TO HIM THAT IF IT BECOMES TO MUCH THAT HE CAN CALL [facility] AND THEY CAN DIRECT ADMIT HER ( SPOKE WITH IVAN) I HAVE SENT A REFERRAL TO [facility] FOR NURSNG O&A AND LIFE ALERT DCP- Discharge Planning Updated by [id number]: Saskia Mccall on 03/13/20 3:[address] RITTER HERE TO SEE PATIENT, HE WOULD NOE TO TAKE HER TO [facility] TO HELP HER. I HAVE CALLED HER TO LET HIM KNOW & HE WOULD LIKE TO TAKE HER HOME. I TOLD HIM THAT I WOULD TELL THE DOCTOR. RABIA NOTIFIED AND SHE SAID THAT SHE IS NOT BEING DISHCARGED TODAY. CM WILL CONTINUE TO FOLLOW AND ASSIST NEEDED PRASHANT IS THE POA & [phone] Coverage Notice Reviewer: [id number] - Saskia Mccall Notice Issued Date-Time: 03/14/2020 12:00 Notice Type: IM Discharge Notice Notice Delivered To: Family Member Relationship to Patient: Spouse Noodle Maker Name: PRASHANT Delivery Method: HAND - Hand Delivered Nancy Days: Prior Verbal Notification: Recipient Understood Notice: Yes Recipient Signature: Yes Med Rec Note Co-signed by Attending: Coverage Notice Comment: Last DP export: 03/14/20 2:42 p Patient Name: LOU NUNES Page [phone] at 0907 All edits/amendments must be made on the electronic document DICTATION DATE: 03/15/20905 DEPARTMENT SUPERVISOR: SREE 03/15/20905 RPT#: [id number] DC DATE:03/14/20 STATUS: DIS IN [facility] [address] [place] [address] END OF REPORT
== END 2020-03-14 15:44 | disposition home health service (06) | DRG 377 ==
LOC: D.ER 09:00 → D.MS 11:29 → D.ICU 14:38 → D.MS 21:03
PROVIDERS: Emergency Medicine; Family Medicine; ADMIT Internal Medicine Nephrology; ATTEND Internal Medicine Nephrology
DX: K57.93 Diverticulitis of intestine, part unspecified, without perforation or abscess with bleeding (principal); G93.41 Metabolic encephalopathy; F01.51 Vascular dementia, unspecified severity, with behavioral disturbance; I10 Essential (primary) hypertension; J44.9 Chronic obstructive pulmonary disease, unspecified; I69.919 Unspecified symptoms and signs involving cognitive functions following unspecified cerebrovascular disease; E78.5 Hyperlipidemia, unspecified; D64.9 Anemia, unspecified; K64.9 Unspecified hemorrhoids